=== PATIENT | male | born 1980 | race Caucasian/White ===

== ENCOUNTER 2018-04-10 05:46 | Emergency (ER) | payer BC ==
[~2018-04-10] VITALS: Ht 175.3 cm; Wt 113.4 kg
[2018-04-10 05:51] VITALS: BP 141/77
--- NOTE | 2018-04-10 05:51 | NUR ---
TO BED # 8 VIA W/C, REPORT GIVEN TO JAQUAN PABLO
--- NOTE | 2018-04-10 05:55 | NUR ---
PATIENT PRESENTS ER WITH C/O PAIN TO THE BACK X 4 DAYS. PT STATED HE TOOK MEDICATION, IBUPROFEN WITH NO RELIEF. PATIENT STATES PAIN OF 9/10 AT THIS TIME; PT STATES HIS PAIN IS SHARP.PT IS A/O X 4. VSS; PATIENT POSITIONED FOR COMFORT; HOB ELEVATED; BEDRAILS UP X2; BED DOWN. ER MD MADE AWARE OF PT STATUS.
[2018-04-10] MEDS ORDERED: MORPHINE SULFATE 4 MG/ML SYR IM ONE (06:15)
[2018-04-10 06:53] VITALS: BP 103/53
== END 2018-04-10 06:53 | disposition home or self-care (01) ==
LOC: MED 05:46
DX: M54.5 Low back pain (principal)
CPT/HCPCS: 96372; 99283; J2270